=== PATIENT | female | born 1980 | race Caucasian/White ===

== ENCOUNTER 2022-03-08 12:59 | Emergency (ER) | payer BC ==
[2022-03-08] MEDS: Take Home: Cyclobenzaprine 10 MG Tab, 4 Tab Pack PO ONE (13:38)
[2022-03-08] MEDS: Ketorolac 60 MG/2 ML SDV IM ONE (13:42)
== END 2022-03-08 14:22 | disposition home or self-care (01) ==
LOC: CC.ED 12:59
DX: S39.012A Strain of muscle, fascia and tendon of lower back, initial encounter (principal)
CPT/HCPCS: 72100; 96372; 99283; A9270-GY; J1885